=== PATIENT | female | born 1975 | race Caucasian/White ===

== ENCOUNTER → 2017-11-29 | Outpatient (CLI) | payer OTHER ==
[~2017-11-29] MED LIST: BACTRIM,SEPT1 TABLET PO; KEFLEX500 MG PO; PERCOCET 5/31 TABLET PO
== END | disposition home or self-care (01) ==
LOC: NUC 11-22 09:30
DX: R07.9 Chest pain, unspecified (principal); R94.31 Abnormal electrocardiogram [ECG] [EKG]; F17.210 Nicotine dependence, cigarettes, uncomplicated; R03.0 Elevated blood-pressure reading, without diagnosis of hypertension; Z82.49 Family history of ischemic heart disease and other diseases of the circulatory system
CPT/HCPCS: 78452; 93017; A9500; J2785